=== PATIENT | male | born 1980 | race Caucasian/White ===

== ENCOUNTER 2020-12-30 12:26 | Emergency (ER) | payer SELFPAY ==
[2020-12-30 12:33] VITALS: BMI 32.8
[2020-12-30] MEDS ORDERED: ACETAMINOPHEN 500 MG TABLET (FP) PO ONE (13:43)
[2020-12-30] MEDS ORDERED: ACETAMINOPHEN 325 MG TABLET (FP) ONE (14:56)
[2020-12-30 15:04] LABS: BASO % 1.1 % (0-2.0); EOS % 1.3 % (0-4.5); HEMATOCRIT 43.7 % (35.4-49); HEMOGLOBIN 15.2 GM/dL (11.7-16.9); LYMPH % 22.9 % (8-40); MCH 30.8 pg (25.7-33.7); MCHC 34.9 g/dl (32.0-35.9); MEAN CELL VOLUME 88.5 fl (80-96); MEAN PLT VOLUME 7.2 fl (7.5-11.1); MONO % 9.1 % (3.8-10.2); NEUT % 65.6 % (42.8-82.8); PLATELET COUNT 313 10^3/uL (134-434); RBC 4.94 M/mm3 (4.00-5.60); RDW 13.4 % (11.9-15.9); WHITE BLOOD COUNT 7.7 K/mm3 (4.0-10.0)
[2020-12-30 15:06] LABS: URINE APPEARANCE CLEAR; URINE BILIRUBIN NEGATIVE (NEGATIVE); URINE COLOR YELLOW; URINE GLUCOSE (UA) NEGATIVE (NEGATIVE); URINE KETONE NEGATIVE (NEGATIVE); URINE LEUK ESTERASE NEGATIVE (NEGATIVE); URINE NITRITE NEGATIVE (NEGATIVE); URINE PROTEIN NEGATIVE (NEGATIVE); URINE UROBILINOGEN 0.2 mg/dL (0.2-1.0)
[2020-12-30 15:12] LABS: PROTHROMBIN TIME (PATIENT) 11.2 SEC (9.7-13.0)
[2020-12-30 15:15] LABS: ACTIVATED PTT 29.3 SECONDS (25.2-36.5)
[2020-12-30 15:25] LABS: CALCIUM 8.9 mg/dL (8.5-10.1)
[2020-12-30 15:26] LABS: ALBUMIN 4.1 g/dl (3.4-5.0); BLOOD UREA NITROGEN 14.8 mg/dL (7-18)
[2020-12-30 15:29] LABS: CREATININE 0.9 mg/dL (0.55-1.3)
[2020-12-30 15:30] LABS: BILIRUBIN,TOTAL 0.2 mg/dL (0.2-1)
[2020-12-30 17:59] VITALS: TEMP 98.1
[2020-12-30 19:24] VITALS: BP 128/79; PULSE 82
== END 2020-12-30 19:20 | disposition home or self-care (01) ==
LOC: JER 12:26
DX: N50.819 Testicular pain, unspecified (principal)
CPT/HCPCS: 36415; 71045-TC-FY; 74177-TC; 76870-TC; 80053; 81003; 83605; 85025; 85610; 85730; 86850; 86900; 86901; 87086; 93005; 93010; 99285-25; C9803; Q9967; U0003; U0005